=== PATIENT | male | born 1935 | race Caucasian/White ===

== ENCOUNTER 2021-08-20 17:04 | Inpatient (IN) ==
[2021-08-20 17:54] LABS: Basophils % 0.5 %; Hematocrit 36.5 % (37.5-50.1); Hemoglobin 10.9 g/dL (12.9-16.9); Immature Granulocytes % 4.7 % (0-4); Lymphocytes # 0.4 K/mcL (0.6-4.6); Lymphocytes % 4.6 %; Mean Corpuscular HGB Conc 29.9 g/dL (31.6-35.5); Mean Corpuscular Hemoglobin 27.5 pg (28.0-33.3); Mean Corpuscular Volume 91.9 fL (83.0-100.0); Mean Platelet Volume 9.7 fL (9.4-12.4); Monocytes # 0.2 K/mcL (0.0-1.3); Monocytes % 2.6 %; Neutrophils # 6.7 K/mcL (1.6-8.9); Platelet Count 144 K/mcL (140-400); Red Blood Count 3.97 M/mcL (4.19-5.50); Red Cell Distribution Width 13.5 % (11.5-14.5); Segmented Neutrophils % 87.6 %; White Blood Count 7.6 K/mcL (4.3-11.1)
[2021-08-20 18:02] LABS: INR 1.1
[2021-08-20 18:04] LABS: Activated Partial Thrombo Time 45.3 Seconds (26.0-36.0)
[2021-08-20 18:07] LABS: Alanine Aminotransferase 9 Units/L (7-52); Albumin 3.5 g/dL (3.5-5.7); Albumin/Globulin Ratio 1.1 (1.1-2.2); Alkaline Phosphatase 43 Units/L (34-104); Aspartate Amino Transferase 10 Units/L (13-39); BUN/Creatinine Ratio 25 (6-26); Bilirubin,Direct 0.1 mg/dL (0.0-0.2); Bilirubin,Indirect 0.2 mg/dL (0.0-1.0); Bilirubin,Total 0.3 mg/dL (0.3-1.0); Blood Urea Nitrogen 34 mg/dL (8-23); Calcium 8.5 mg/dL (8.6-10.3); Carbon Dioxide 28 mEq/L (23-29); Chloride 102 mEq/L (98-107); Ethanol < 10 mg/dL (Less than 10); Globulin 3.1 g/dL (2.4-3.5); Glucose 205 mg/dL (70-105); Osmolality,Calculated 300 (280-300); Potassium 5.7 mEq/L (3.5-5.1); Sodium 138 mEq/L (136-145); Total Protein 6.6 g/dL (6.4-8.9); Troponin I < 0.03 ng/mL (< 0.04); eGFR For African Americans > 60 (> 60); eGFR For Non-African Americans 50 (> 60)
[2021-08-20 18:18] LABS: Thyroid Stimulating Hormone 0.891 mcIU/mL (0.340-5.600)
[2021-08-20] MEDS ORDERED: Ipratropium/Albuterol Neb 3 ML IH ONE (18:26)
[2021-08-20] MEDS ORDERED: Albuterol 2.5 MG/3 ML NEBULIZER IH ONE (18:42)
[2021-08-20 18:44] LABS: Influenza A PCR Negative (Negative); Influenza B PCR Negative (Negative); Resp. Syncytial Virus PCR Negative (Negative)
[2021-08-20] MEDS ORDERED: Azithromycin 500 MG in 0.9 % Sodium Chloride 250 ML IVPB ONE (18:44)
[2021-08-20] MEDS ORDERED: Furosemide 40 MG/4 ML VIAL IVP ONE (18:44)
[2021-08-20 18:45] LABS: SARS-CoV-2 by PCR (In House) Negative (Negative)
[2021-08-20 19:40] LABS: Bilirubin,Urine Negative (Negative); Blood,Urine Negative (Negative); Clarity,Urine Clear (Clear); Color,Urine Light-Yellow (Yellow); Glucose,Urine (UA) Normal (Normal); Ketones,Urine Negative (Negative); Leukocyte Esterase,Urine Moderate (Negative); Mucus,Urine Few per lpf (None-Few); Nitrite,Urine Negative (Negative); Protein,Urine Trace mg/dL (Neg-Trace); RBC,Urine 0-3 per hpf (0-3); Specific Gravity,Urine 1.018 (1.010-1.025); Urobilinogen,Urine Normal (Normal)
[2021-08-20 19:43] LABS: ABG Base Excess 4 mEq/L (-2 to 3); ABG HCO3 30 mEq/L (21-27); ABG Oxygen Saturation 92 % (95-98); ABG PCO2 55 mmHg (35-45); ABG PH 7.35 pH Units (7.32-7.45); ABG PO2 69 mmHg (85-104); ABG TCO2 32 mEq/L (20-26)
[2021-08-20 19:50] LABS: Amphetamine Screen,Urine Negative ng/mL (Cutoff=1000); Barbiturate Screen,Urine Negative ng/mL (Cutoff=200); Benzodiazepines Screen,Urine Negative ng/mL (Cutoff=200); Cannabinoid Screen,Urine Negative ng/mL (Cutoff = 50); Cocaine Screen,Urine Negative ng/mL (Cutoff= 300); Opiate Screen,Urine Negative ng/mL (Cutoff=300); Phencyclidine Screen,Urine Negative ng/mL (Cutoff=25)
[2021-08-20] MEDS: SODIUM ZIRCONIUM CYCLOSILICATE 5 GM POWD.PACK PO SCH ×2 (20:15→20:18)
[2021-08-20] MEDS ORDERED: cefTRIAXone 1,000 MG in 0.9 % Sodium Chloride Mini Bag 100 ML IVPB ONE (20:59)
[2021-08-20] MEDS ORDERED: Acetaminophen 325 MG TABLET PO PRN (21:56)
[2021-08-20] MEDS ORDERED: Ondansetron 4 MG/2 ML VIAL IVP PRN (21:56)
[2021-08-20] MEDS ORDERED: Naloxone 0.4 MG/ML INJ IVP PRN (21:56)
[2021-08-20] MEDS ORDERED: Isovue-370 500 ML BOTTLE IVP ONE (22:01)
[2021-08-20] MEDS: Ipratropium/Albuterol Neb 3 ML IH SCH (23:57)
[2021-08-20] MEDS: Budesonide/Formoterol 160/4.5 1 PUFF INH IH SCH (23:58)
[2021-08-21] MEDS ORDERED: D5% in Water 1,000 ML IVC PRN (00:08)
[2021-08-21] MEDS ORDERED: Dextrose Gel 15 GM/37.5 ML TUBE PO PRN ×2 (00:08)
[2021-08-21] MEDS ORDERED: *HR* Dextrose 50 % in Water (Syg) 50 ML SYRINGE IVP PRN (00:08)
[2021-08-21] MEDS ORDERED: Furosemide 20 MG/2 ML VIAL IVP ONE ×2 (00:09→07:53)
[2021-08-21] MEDS ORDERED: OLANZapine 5 MG TAB.RAPDIS PO STA (00:14)
[2021-08-21 01:41] LABS: Hematocrit 35.1 % (37.5-50.1); Hemoglobin 10.5 g/dL (12.9-16.9); Mean Corpuscular HGB Conc 29.9 g/dL (31.6-35.5); Mean Corpuscular Hemoglobin 27.2 pg (28.0-33.3); Mean Corpuscular Volume 90.9 fL (83.0-100.0); Mean Platelet Volume 9.5 fL (9.4-12.4); Monocytes # 0.2 K/mcL (0.0-1.3); Platelet Count 142 K/mcL (140-400); Red Blood Count 3.86 M/mcL (4.19-5.50); Red Cell Distribution Width 13.6 % (11.5-14.5); White Blood Count 8.2 K/mcL (4.3-11.1)
[2021-08-21 01:53] LABS: INR 1.1; Prothrombin Time 12.3 Seconds (9.4-12.1)
[2021-08-21 02:09] LABS: BUN/Creatinine Ratio 27 (6-26); Blood Urea Nitrogen 35 mg/dL (8-23); Calcium 8.3 mg/dL (8.6-10.3); Carbon Dioxide 27 mEq/L (23-29); Chloride 102 mEq/L (98-107); Glucose 179 mg/dL (70-105); Osmolality,Calculated 298 (280-300); Phosphorous 3.1 mg/dL (2.7-4.5); Potassium 5.3 mEq/L (3.5-5.1); Sodium 138 mEq/L (136-145); Troponin I < 0.03 ng/mL (< 0.04); eGFR For African Americans > 60 (> 60); eGFR For Non-African Americans 52 (> 60)
[2021-08-21 02:21] LABS: Lymphocytes # 0.5 K/mcL (0.6-4.6); Neutrophils # 7.2 K/mcL (1.6-8.9); Platelet Estimate Normal (Normal)
[2021-08-21] MEDS: Ipratropium/Albuterol Neb 3 ML IH SCH ×5 (04:05→20:19)
[2021-08-21] MEDS ORDERED: Insulin Human Regular 10 UNIT in 0.9 % Sodium Chloride 10 ML IV ONE (07:52)
[2021-08-21] MEDS ORDERED: *HR* Dextrose 50 % in Water (Vial) 50 ML VIAL IVP ONE (07:52)
[2021-08-21] MEDS ORDERED: Calcium Gluconate 1gm/50mL 1 GM/50 ML BAG IVPB ONE (07:52)
[2021-08-21] MEDS: Budesonide/Formoterol 160/4.5 1 PUFF INH IH SCH ×2 (08:26→20:18)
[2021-08-21] MEDS ORDERED: Furosemide 40 MG/4 ML VIAL IVP SCH (09:00)
[2021-08-21] MEDS: cefTRIAXone 1,000 MG in Water for inj. (sterile) 10 ML IVP SCH (09:02)
[2021-08-21] MEDS: Pantoprazole 40 MG VIAL IVP SCH (09:04)
[2021-08-21] MEDS: Aspirin 81 MG TAB.CHEW PO SCH (09:23)
[2021-08-21] MEDS: Chlorhexidine Rinse 15 ML MOUTHWASH MM SCH ×2 (09:23→22:08)
[2021-08-21] MEDS: Saline Nasal Spray 44 ML BOTTLE NS SCH ×2 (09:23→12:25)
[2021-08-21] MEDS: Saliva Stimulant 44.3ml BOTTLE PO SCH ×4 (09:23→22:07)
[2021-08-21] MEDS: SODIUM ZIRCONIUM CYCLOSILICATE 5 GM POWD.PACK PO SCH (09:24)
[2021-08-21] MEDS: Fluticasone Propionate Nasal 50 MCG/SPRAY BOTTLE NS SCH (09:24)
[2021-08-21] MEDS: predniSONE 20 MG TABLET PO SCH (09:24)
[2021-08-21] MEDS: Metoprolol XL (24 HR) Succ 25 MG TAB.ER.24H PO SCH (09:24)
[2021-08-21] MEDS: Lactobacillus 1 EACH CAP.SPRINK PO SCH ×2 (09:24→22:08)
[2021-08-21 11:14] LABS: Acetaminophen < 10 mcg/mL (10-20); Salicylate < 2.5 mg/dL (15.0-30.0)
[2021-08-21 11:33] LABS: Folate 3.6 ng/mL (3.0-16.0)
[2021-08-21] MEDS: Azithromycin 500 MG in 0.9 % Sodium Chloride 250 ML IVPB SCH (11:37)
[2021-08-21] MEDS: Artificial Tears SOLN 15 ML BOTTLE BOTH EYES SCH ×4 (11:54→22:08)
[2021-08-21] MEDS ORDERED: E-Z-PAQUE (BARIUM SULF) SUSP 1 BOTTLE PO ONE (13:48)
[2021-08-21] MEDS ORDERED: E-Z-HD (BARIUM SULF) SUSPENSION PO ONE (13:48)
[2021-08-21] MEDS: *HR* Heparin 5,000 UNIT/ML VIAL SQ SCH ×2 (15:28→22:09)
[2021-08-21] MEDS: OLANZapine 10 MG TAB.RAPDIS PO SCH (22:09)
[2021-08-22 00:03] LABS: Amphetamine Screen,Urine Negative ng/mL (Cutoff=1000); Barbiturate Screen,Urine Negative ng/mL (Cutoff=200); Benzodiazepines Screen,Urine Negative ng/mL (Cutoff=200); Cannabinoid Screen,Urine Negative ng/mL (Cutoff = 50); Cocaine Screen,Urine Negative ng/mL (Cutoff= 300); Opiate Screen,Urine Negative ng/mL (Cutoff=300); Phencyclidine Screen,Urine Negative ng/mL (Cutoff=25)
[2021-08-22] MEDS: Ipratropium/Albuterol Neb 3 ML IH SCH ×7 (00:25→23:00)
[2021-08-22] MEDS: Saline Nasal Spray 44 ML BOTTLE NS SCH ×6 (03:28→21:54)
[2021-08-22] MEDS: *HR* Heparin 5,000 UNIT/ML VIAL SQ SCH ×3 (05:45→22:04)
[2021-08-22] MEDS: Budesonide/Formoterol 160/4.5 1 PUFF INH IH SCH ×2 (07:43→20:17)
[2021-08-22] MEDS: Artificial Tears SOLN 15 ML BOTTLE BOTH EYES SCH ×4 (09:17→21:55)
[2021-08-22] MEDS: Fluticasone Propionate Nasal 50 MCG/SPRAY BOTTLE NS SCH (09:17)
[2021-08-22] MEDS: Saliva Stimulant 44.3ml BOTTLE PO SCH ×4 (09:17→21:54)
[2021-08-22] MEDS: Pantoprazole 40 MG VIAL IVP SCH (09:18)
[2021-08-22] MEDS: Furosemide 20 MG/2 ML VIAL IVP SCH (09:18)
[2021-08-22] MEDS: Azithromycin 500 MG in 0.9 % Sodium Chloride 250 ML IVPB SCH (09:18)
[2021-08-22] MEDS: Metoprolol XL (24 HR) Succ 25 MG TAB.ER.24H PO SCH (09:19)
[2021-08-22] MEDS: Lactobacillus 1 EACH CAP.SPRINK PO SCH ×2 (09:19→21:54)
[2021-08-22] MEDS: cefTRIAXone 1,000 MG in Water for inj. (sterile) 10 ML IVP SCH (09:19)
[2021-08-22] MEDS: Chlorhexidine Rinse 15 ML MOUTHWASH MM SCH ×2 (09:19→21:53)
[2021-08-22] MEDS: SODIUM ZIRCONIUM CYCLOSILICATE 5 GM POWD.PACK PO SCH (09:19)
[2021-08-22] MEDS: Aspirin 81 MG TAB.CHEW PO SCH (09:19)
[2021-08-22] MEDS: predniSONE 20 MG TABLET PO SCH (09:19)
[2021-08-22 10:45] LABS: Hematocrit 38.8 % (37.5-50.1); Hemoglobin 11.8 g/dL (12.9-16.9); Mean Corpuscular HGB Conc 30.4 g/dL (31.6-35.5); Mean Corpuscular Hemoglobin 27.1 pg (28.0-33.3); Mean Corpuscular Volume 89.2 fL (83.0-100.0); Platelet Count 170 K/mcL (140-400); Red Blood Count 4.35 M/mcL (4.19-5.50); White Blood Count 9.9 K/mcL (4.3-11.1)
[2021-08-22 11:44] LABS: Calcium 8.7 mg/dL (8.6-10.3); Potassium 3.9 mEq/L (3.5-5.1)
[2021-08-22 12:19] LABS: Lymphocytes # 1.6 K/mcL (0.6-4.6); Monocytes # 0.4 K/mcL (0.0-1.3); Neutrophils # 7.2 K/mcL (1.6-8.9)
[2021-08-22 12:20] LABS: Platelet Estimate Normal (Normal)
[2021-08-22] MEDS: *HR* LORazepam 0.5 MG TABLET PO SCH ×2 (14:21→21:54)
[2021-08-22] MEDS: OLANZapine 10 MG TAB.RAPDIS PO SCH (21:57)
[2021-08-23] MEDS: Ipratropium/Albuterol Neb 3 ML IH SCH ×3 (04:01→11:16)
[2021-08-23] MEDS: *HR* Heparin 5,000 UNIT/ML VIAL SQ SCH (06:30)
[2021-08-23] MEDS: Budesonide/Formoterol 160/4.5 1 PUFF INH IH SCH (08:02)
[2021-08-23] MEDS ORDERED: CefTRIAXone 1,000 MG VIAL ONE (08:15)
[2021-08-23] MEDS ORDERED: 0.9 % Sodium Chloride 250 ML ONE (08:15)
[2021-08-23] MEDS: cefTRIAXone 1,000 MG in Water for inj. (sterile) 10 ML IVP SCH (08:19)
[2021-08-23] MEDS: Azithromycin 500 MG in 0.9 % Sodium Chloride 250 ML IVPB SCH (08:19)
[2021-08-23] MEDS: predniSONE 20 MG TABLET PO SCH (08:20)
[2021-08-23] MEDS: Chlorhexidine Rinse 15 ML MOUTHWASH MM SCH (08:20)
[2021-08-23] MEDS: *HR* LORazepam 0.5 MG TABLET PO SCH (08:20)
[2021-08-23] MEDS: Furosemide 20 MG/2 ML VIAL IVP SCH (08:20)
[2021-08-23] MEDS: Aspirin 81 MG TAB.CHEW PO SCH (08:20)
[2021-08-23] MEDS: Lactobacillus 1 EACH CAP.SPRINK PO SCH (08:20)
[2021-08-23] MEDS: Metoprolol XL (24 HR) Succ 25 MG TAB.ER.24H PO SCH (08:20)
[2021-08-23] MEDS: Artificial Tears SOLN 15 ML BOTTLE BOTH EYES SCH ×2 (08:21→13:03)
[2021-08-23] MEDS: Saliva Stimulant 44.3ml BOTTLE PO SCH ×2 (08:21→13:03)
[2021-08-23] MEDS: Fluticasone Propionate Nasal 50 MCG/SPRAY BOTTLE NS SCH (08:21)
[2021-08-23] MEDS: Saline Nasal Spray 44 ML BOTTLE NS SCH ×2 (08:22→13:03)
[2021-08-23 11:39] VITALS: BP 155/52; PULSE 74; TEMP 97.5; O2SAT 90
[2021-08-23 14:49] LABS: Adenovirus Not Detected (Not Detect); Bordetella Pertussis Not Detected (Not Detect); Chlamydophila pneumoniae Not Detected (Not Detect); Coronavirus 229E Not Detected (Not Detect); Coronavirus HKU1 Not Detected (Not Detect); Coronavirus NL63 Not Detected (Not Detect); Coronavirus OC43 Not Detected (Not Detect); Human Metapneumovirus Not Detected (Not Detect); Human Rhinovirus/Enterovirus Not Detected (Not Detect); Influenza A Subtype 2009 H1 Not Detected (Not Detect); Influenza B Not Detected (Not Detect); Mycoplasma pneumoniae Not Detected (Not Detect); Parainfluenza Virus 1 Not Detected (Not Detect); Parainfluenza Virus 2 Not Detected (Not Detect); Parainfluenza Virus 3 Not Detected (Not Detect); Parainfluenza Virus 4 Not Detected (Not Detect); Respiratory Syncytial Virus Not Detected (Not Detect); SARS-CoV-2 Not Detected (Not Detect)
== END 2021-08-23 15:04 | DRG 56 ==
LOC: 3ANU 17:04 → EMEROOARM 17:04 → SUATTDRO 21:30 → 3ANU 22:02
PROVIDERS: ADMIT Internal Medicine; ATTEND Internal Medicine

== ENCOUNTER 2021-08-31 12:48 | Inpatient (IN) ==
[2021-08-31 13:55] LABS: Mean Corpuscular HGB Conc 29.7 g/dL (31.6-35.5); Mean Corpuscular Hemoglobin 27.6 pg (28.0-33.3); Mean Corpuscular Volume 92.7 fL (83.0-100.0); Mean Platelet Volume 9.9 fL (9.4-12.4); Monocytes # 0.3 K/mcL (0.0-1.3); Platelet Count 106 K/mcL (140-400); Red Blood Count 3.99 M/mcL (4.19-5.50); Red Cell Distribution Width 14.1 % (11.5-14.5); White Blood Count 7.2 K/mcL (4.3-11.1)
[2021-08-31 14:16] LABS: BUN/Creatinine Ratio 23 (6-26); Blood Urea Nitrogen 27 mg/dL (8-23); Calcium 8.4 mg/dL (8.6-10.3); Carbon Dioxide 31 mEq/L (23-29); Chloride 105 mEq/L (98-107); Glucose 236 mg/dL (70-105); Osmolality,Calculated 295 (280-300); Potassium 5.1 mEq/L (3.5-5.1); Sodium 136 mEq/L (136-145); eGFR For African Americans > 60 (> 60); eGFR For Non-African Americans 59 (> 60)
[2021-08-31 14:24] LABS: Troponin I 0.06 ng/mL (< 0.04)
[2021-08-31 14:27] LABS: Lymphocytes # 0.5 K/mcL (0.6-4.6); Neutrophils # 6.4 K/mcL (1.6-8.9); Platelet Estimate Slight Decrease (Normal)
[2021-08-31] MEDS ORDERED: Ondansetron 4 MG/2 ML VIAL IVP PRN (16:32)
[2021-08-31] MEDS ORDERED: Naloxone 0.4 MG/ML INJ IVP PRN (16:32)
[2021-08-31] MEDS ORDERED: Acetaminophen 325 MG TABLET PO PRN (17:45)
[2021-08-31] MEDS ORDERED: Ipratropium/Albuterol Neb 3 ML IH PRN (17:45)
[2021-08-31] MEDS ORDERED: Artificial Tears SOLN 15 ML BOTTLE BOTH EYES PRN (17:45)
[2021-08-31 17:50] LABS: Thyroid Stimulating Hormone 0.749 mcIU/mL (0.340-5.600)
[2021-08-31 18:04] LABS: Albumin/Globulin Ratio 1.3 (1.1-2.2); Bilirubin,Direct 0.1 mg/dL (0.0-0.2); Bilirubin,Indirect 0.3 mg/dL (0.0-1.0); Bilirubin,Total 0.4 mg/dL (0.3-1.0); Globulin 2.4 g/dL (2.4-3.5); Total Protein 5.4 g/dL (6.4-8.9)
[2021-08-31 18:07] LABS: Adenovirus Not Detected (Not Detect); Coronavirus 229E Not Detected (Not Detect); Coronavirus HKU1 Not Detected (Not Detect); Coronavirus NL63 Not Detected (Not Detect); Coronavirus OC43 Not Detected (Not Detect)
[2021-08-31 18:08] LABS: Bordetella Pertussis Not Detected (Not Detect); Chlamydophila pneumoniae Not Detected (Not Detect); Human Metapneumovirus Not Detected (Not Detect); Human Rhinovirus/Enterovirus Not Detected (Not Detect); Influenza A Subtype 2009 H1 Not Detected (Not Detect); Influenza B Not Detected (Not Detect); Mycoplasma pneumoniae Not Detected (Not Detect); Parainfluenza Virus 1 Not Detected (Not Detect); Parainfluenza Virus 2 Not Detected (Not Detect); Parainfluenza Virus 3 Not Detected (Not Detect); Parainfluenza Virus 4 Not Detected (Not Detect); Respiratory Syncytial Virus Not Detected (Not Detect); SARS-CoV-2 DETECTED (Not Detect)
[2021-08-31] MEDS: Lactobacillus 1 EACH CAP.SPRINK PO SCH (21:50)
[2021-08-31] MEDS: *HR* LORazepam 1 MG TABLET PO SCH (21:50)
[2021-08-31] MEDS: OLANZapine 10 MG TAB.RAPDIS PO SCH (23:32)
[2021-09-01 02:20] LABS: Alanine Aminotransferase 8 Units/L (7-52); Albumin 3.1 g/dL (3.5-5.7); Albumin/Globulin Ratio 1.4 (1.1-2.2); Alkaline Phosphatase 42 Units/L (34-104); Aspartate Amino Transferase 9 Units/L (13-39); BUN/Creatinine Ratio 27 (6-26); Bilirubin,Total 0.5 mg/dL (0.3-1.0); Blood Urea Nitrogen 32 mg/dL (8-23); Calcium 8.4 mg/dL (8.6-10.3); Carbon Dioxide 34 mEq/L (23-29); Chloride 104 mEq/L (98-107); Globulin 2.2 g/dL (2.4-3.5); Glucose 136 mg/dL (70-105); Osmolality,Calculated 293 (280-300); Potassium 5.3 mEq/L (3.5-5.1); Sodium 137 mEq/L (136-145); Total Protein 5.3 g/dL (6.4-8.9); eGFR For African Americans > 60 (> 60); eGFR For Non-African Americans 59 (> 60)
[2021-09-01 02:34] LABS: Hematocrit 34.9 % (37.5-50.1); Hemoglobin 10.6 g/dL (12.9-16.9); Mean Corpuscular HGB Conc 30.4 g/dL (31.6-35.5); Mean Corpuscular Hemoglobin 28.1 pg (28.0-33.3); Mean Corpuscular Volume 92.6 fL (83.0-100.0); Mean Platelet Volume 9.8 fL (9.4-12.4); Platelet Count 135 K/mcL (140-400); Red Blood Count 3.77 M/mcL (4.19-5.50); White Blood Count 6.2 K/mcL (4.3-11.1)
[2021-09-01] MEDS: *HR* Enoxaparin 40 MG/0.4 ML SYRINGE SQ SCH (05:38)
[2021-09-01 06:27] LABS: Bilirubin,Urine Negative (Negative); Blood,Urine Large (Negative); Clarity,Urine Ex.Turbid (Clear); Color,Urine Dark-Brown (Yellow); Glucose,Urine (UA) Normal (Normal); Ketones,Urine Negative (Negative); Leukocyte Esterase,Urine Small (Negative); Nitrite,Urine Negative (Negative); PH,Urine 5.5 pH Units (5.0-8.0); Protein,Urine 70 mg/dL (Neg-Trace); RBC,Urine TNTC per hpf (0-3); Specific Gravity,Urine 1.018 (1.010-1.025); Urobilinogen,Urine Normal (Normal); WBC,Urine TNTC per hpf (0-3)
[2021-09-01] MEDS: Dexamethasone Sodium Phos/PF 10 MG/ML VIAL IVP SCH (08:01)
[2021-09-01] MEDS: Fluticasone Propionate Nasal 50 MCG/SPRAY BOTTLE NS SCH (08:02)
[2021-09-01] MEDS: Cholecalciferol (D-3) 1,000 UNIT (25MCG) TABLET PO SCH (08:02)
[2021-09-01] MEDS: *HR* LORazepam 1 MG TABLET PO SCH ×3 (08:02→21:51)
[2021-09-01] MEDS: polyethylene glycoL 3350 17 GM POWD.PACK PO SCH (08:02)
[2021-09-01] MEDS: Lactobacillus 1 EACH CAP.SPRINK PO SCH ×2 (08:02→21:51)
[2021-09-01] MEDS: Furosemide 20 MG TABLET PO SCH (08:02)
[2021-09-01] MEDS: Metoprolol XL (24 HR) Succ 50 MG TAB.ER.24H PO SCH (08:02)
[2021-09-01] MEDS: cefTRIAXone 2,000 MG in 0.9 % Sodium Chloride Mini Bag 100 ML IVPB SCH (09:37)
[2021-09-01] MEDS: OLANZapine 10 MG TAB.RAPDIS PO SCH (21:51)
[2021-09-02] MEDS: *HR* Enoxaparin 40 MG/0.4 ML SYRINGE SQ SCH (05:43)
[2021-09-02] MEDS: Metoprolol XL (24 HR) Succ 50 MG TAB.ER.24H PO SCH (07:54)
[2021-09-02] MEDS: *HR* LORazepam 1 MG TABLET PO SCH ×3 (07:54→20:21)
[2021-09-02] MEDS: Cholecalciferol (D-3) 1,000 UNIT (25MCG) TABLET PO SCH (07:54)
[2021-09-02] MEDS: Lactobacillus 1 EACH CAP.SPRINK PO SCH ×2 (07:54→20:21)
[2021-09-02] MEDS: Furosemide 20 MG TABLET PO SCH (07:55)
[2021-09-02] MEDS: cefTRIAXone 2,000 MG in 0.9 % Sodium Chloride Mini Bag 100 ML IVPB SCH (07:55)
[2021-09-02] MEDS: Dexamethasone Sodium Phos/PF 10 MG/ML VIAL IVP SCH (07:55)
[2021-09-02] MEDS: Fluticasone Propionate Nasal 50 MCG/SPRAY BOTTLE NS SCH (07:56)
[2021-09-02] MEDS: polyethylene glycoL 3350 17 GM POWD.PACK PO SCH (07:56)
[2021-09-02 09:22] LABS: Hematocrit 38.6 % (37.5-50.1); Hemoglobin 11.2 g/dL (12.9-16.9); Mean Corpuscular Hemoglobin 27.1 pg (28.0-33.3); Mean Corpuscular Volume 93.2 fL (83.0-100.0); Mean Platelet Volume 9.7 fL (9.4-12.4); Platelet Count 130 K/mcL (140-400); Red Blood Count 4.14 M/mcL (4.19-5.50); White Blood Count 7.6 K/mcL (4.3-11.1)
[2021-09-02 09:41] LABS: Alanine Aminotransferase 8 Units/L (7-52); Albumin 3.2 g/dL (3.5-5.7); Albumin/Globulin Ratio 1.2 (1.1-2.2); Alkaline Phosphatase 39 Units/L (34-104); Aspartate Amino Transferase 9 Units/L (13-39); BUN/Creatinine Ratio 27 (6-26); Bilirubin,Total 0.5 mg/dL (0.3-1.0); Blood Urea Nitrogen 31 mg/dL (8-23); Calcium 8.4 mg/dL (8.6-10.3); Carbon Dioxide 36 mEq/L (23-29); Chloride 103 mEq/L (98-107); Globulin 2.7 g/dL (2.4-3.5); Glucose 101 mg/dL (70-105); Osmolality,Calculated 295 (280-300); Potassium 4.8 mEq/L (3.5-5.1); Sodium 139 mEq/L (136-145); Total Protein 5.9 g/dL (6.4-8.9); eGFR For African Americans > 60 (> 60); eGFR For Non-African Americans > 60 (> 60)
[2021-09-02] MEDS: Ipratropium/Albuterol Neb 3 ML IH SCH ×5 (10:30→23:50)
[2021-09-02] MEDS: OLANZapine 10 MG TAB.RAPDIS PO SCH (20:21)
[2021-09-03 01:07] LABS: Hemoglobin 10.7 g/dL (12.9-16.9); Red Cell Distribution Width 13.9 % (11.5-14.5)
[2021-09-03 01:09] LABS: Hematocrit 36.9 % (37.5-50.1); Mean Corpuscular Hemoglobin 27.8 pg (28.0-33.3); Mean Corpuscular Volume 95.8 fL (83.0-100.0); Mean Platelet Volume 9.8 fL (9.4-12.4); Platelet Count 108 K/mcL (140-400); Red Blood Count 3.85 M/mcL (4.19-5.50); White Blood Count 5.5 K/mcL (4.3-11.1)
[2021-09-03 01:31] LABS: Alanine Aminotransferase 6 Units/L (7-52); Albumin/Globulin Ratio 1.2 (1.1-2.2); Alkaline Phosphatase 35 Units/L (34-104); Aspartate Amino Transferase 14 Units/L (13-39); BUN/Creatinine Ratio 28 (6-26); Bilirubin,Total 0.3 mg/dL (0.3-1.0); Blood Urea Nitrogen 34 mg/dL (8-23); Calcium 8.1 mg/dL (8.6-10.3); Carbon Dioxide 31 mEq/L (23-29); Chloride 103 mEq/L (98-107); Globulin 2.5 g/dL (2.4-3.5); Glucose 127 mg/dL (70-105); Osmolality,Calculated 299 (280-300); Sodium 140 mEq/L (136-145); Total Protein 5.5 g/dL (6.4-8.9); eGFR For African Americans > 60 (> 60); eGFR For Non-African Americans 56 (> 60)
[2021-09-03] MEDS: Ipratropium/Albuterol Neb 3 ML IH SCH (04:13)
[2021-09-03] MEDS: *HR* Enoxaparin 40 MG/0.4 ML SYRINGE SQ SCH (06:46)
[2021-09-03] MEDS ORDERED: Ipratropium 1 PUFF INHALER IH ONE (07:52)
[2021-09-03] MEDS: Ipratropium 1 PUFF INHALER IH SCH ×5 (07:57→23:19)
[2021-09-03] MEDS: Metoprolol XL (24 HR) Succ 50 MG TAB.ER.24H PO SCH (10:35)
[2021-09-03] MEDS: *HR* LORazepam 1 MG TABLET PO SCH ×3 (10:35→20:31)
[2021-09-03] MEDS: Furosemide 20 MG TABLET PO SCH (10:35)
[2021-09-03] MEDS: Cholecalciferol (D-3) 1,000 UNIT (25MCG) TABLET PO SCH (10:35)
[2021-09-03] MEDS: Lactobacillus 1 EACH CAP.SPRINK PO SCH ×2 (10:35→20:31)
[2021-09-03] MEDS: Fluticasone Propionate Nasal 50 MCG/SPRAY BOTTLE NS SCH (10:36)
[2021-09-03] MEDS: polyethylene glycoL 3350 17 GM POWD.PACK PO SCH (10:36)
[2021-09-03] MEDS: cefTRIAXone 2,000 MG in 0.9 % Sodium Chloride Mini Bag 100 ML IVPB SCH (10:43)
[2021-09-03] MEDS: Dexamethasone Sodium Phos/PF 10 MG/ML VIAL IVP SCH (10:44)
[2021-09-03] MEDS: OLANZapine 10 MG TAB.RAPDIS PO SCH (20:31)
[2021-09-04] MEDS ORDERED: QUEtiapine Fumarate 25 MG TABLET PO ONE (01:15)
[2021-09-04 01:47] LABS: Platelet Count 108 K/mcL (140-400); Red Cell Distribution Width 13.7 % (11.5-14.5); White Blood Count 5.7 K/mcL (4.3-11.1)
[2021-09-04 01:49] LABS: Hematocrit 36.8 % (37.5-50.1); Mean Corpuscular HGB Conc 29.9 g/dL (31.6-35.5); Mean Corpuscular Hemoglobin 27.8 pg (28.0-33.3); Mean Corpuscular Volume 92.9 fL (83.0-100.0); Mean Platelet Volume 9.5 fL (9.4-12.4); Red Blood Count 3.96 M/mcL (4.19-5.50)
[2021-09-04 02:10] LABS: Alanine Aminotransferase 6 Units/L (7-52); Albumin 3.2 g/dL (3.5-5.7); Albumin/Globulin Ratio 1.2 (1.1-2.2); Alkaline Phosphatase 41 Units/L (34-104); Aspartate Amino Transferase 11 Units/L (13-39); BUN/Creatinine Ratio 30 (6-26); Bilirubin,Total 0.4 mg/dL (0.3-1.0); Blood Urea Nitrogen 32 mg/dL (8-23); Calcium 8.5 mg/dL (8.6-10.3); Carbon Dioxide 34 mEq/L (23-29); Chloride 101 mEq/L (98-107); Globulin 2.7 g/dL (2.4-3.5); Glucose 111 mg/dL (70-105); Osmolality,Calculated 294 (280-300); Potassium 4.9 mEq/L (3.5-5.1); Sodium 138 mEq/L (136-145); Total Protein 5.9 g/dL (6.4-8.9); eGFR For African Americans > 60 (> 60); eGFR For Non-African Americans > 60 (> 60)
[2021-09-04] MEDS: Ipratropium 1 PUFF INHALER IH SCH ×6 (03:51→23:38)
[2021-09-04] MEDS: *HR* Enoxaparin 40 MG/0.4 ML SYRINGE SQ SCH (05:46)
[2021-09-04] MEDS: Metoprolol XL (24 HR) Succ 50 MG TAB.ER.24H PO SCH (08:53)
[2021-09-04] MEDS: Lactobacillus 1 EACH CAP.SPRINK PO SCH ×2 (08:53→21:04)
[2021-09-04] MEDS: *HR* LORazepam 1 MG TABLET PO SCH ×3 (08:54→21:04)
[2021-09-04] MEDS: Furosemide 20 MG TABLET PO SCH (08:54)
[2021-09-04] MEDS: Cholecalciferol (D-3) 1,000 UNIT (25MCG) TABLET PO SCH (08:54)
[2021-09-04] MEDS: polyethylene glycoL 3350 17 GM POWD.PACK PO SCH (13:18)
[2021-09-04] MEDS: Dexamethasone Sodium Phos/PF 10 MG/ML VIAL IVP SCH (13:32)
[2021-09-04] MEDS: cefTRIAXone 2,000 MG in 0.9 % Sodium Chloride Mini Bag 100 ML IVPB SCH (13:33)
[2021-09-04] MEDS: Fluticasone Propionate Nasal 50 MCG/SPRAY BOTTLE NS SCH (13:34)
[2021-09-04] MEDS: OLANZapine 10 MG TAB.RAPDIS PO SCH (21:04)
[2021-09-05] MEDS: Ipratropium 1 PUFF INHALER IH SCH ×6 (03:54→23:43)
[2021-09-05] MEDS: *HR* Enoxaparin 40 MG/0.4 ML SYRINGE SQ SCH (05:27)
[2021-09-05 06:39] LABS: Hematocrit 34.3 % (37.5-50.1); Hemoglobin 10.1 g/dL (12.9-16.9); Immature Platelets 3.3 % (1.1-6.1); Mean Corpuscular HGB Conc 29.4 g/dL (31.6-35.5); Mean Corpuscular Hemoglobin 27.2 pg (28.0-33.3); Mean Corpuscular Volume 92.2 fL (83.0-100.0); Red Blood Count 3.72 M/mcL (4.19-5.50); Red Cell Distribution Width 13.6 % (11.5-14.5)
[2021-09-05] MEDS: Fluticasone Propionate Nasal 50 MCG/SPRAY BOTTLE NS SCH (07:00)
[2021-09-05 07:01] LABS: Alanine Aminotransferase 9 Units/L (7-52); Albumin/Globulin Ratio 1.2 (1.1-2.2); Alkaline Phosphatase 40 Units/L (34-104); Aspartate Amino Transferase 11 Units/L (13-39); BUN/Creatinine Ratio 28 (6-26); Bilirubin,Total 0.4 mg/dL (0.3-1.0); Blood Urea Nitrogen 33 mg/dL (8-23); Calcium 8.5 mg/dL (8.6-10.3); Carbon Dioxide 41 mEq/L (23-29); Chloride 98 mEq/L (98-107); Globulin 2.6 g/dL (2.4-3.5); Glucose 123 mg/dL (70-105); Osmolality,Calculated 301 (280-300); Potassium 4.6 mEq/L (3.5-5.1); Sodium 141 mEq/L (136-145); Total Protein 5.6 g/dL (6.4-8.9); eGFR For African Americans > 60 (> 60); eGFR For Non-African Americans 59 (> 60)
[2021-09-05] MEDS: Furosemide 20 MG TABLET PO SCH (10:10)
[2021-09-05] MEDS: Cholecalciferol (D-3) 1,000 UNIT (25MCG) TABLET PO SCH (10:10)
[2021-09-05] MEDS: Metoprolol XL (24 HR) Succ 50 MG TAB.ER.24H PO SCH (10:10)
[2021-09-05] MEDS: Dexamethasone Sodium Phos/PF 10 MG/ML VIAL IVP SCH (10:10)
[2021-09-05] MEDS: *HR* LORazepam 1 MG TABLET PO SCH ×3 (10:10→20:33)
[2021-09-05] MEDS: Lactobacillus 1 EACH CAP.SPRINK PO SCH ×2 (10:10→20:33)
[2021-09-05] MEDS: cefTRIAXone 2,000 MG in 0.9 % Sodium Chloride Mini Bag 100 ML IVPB SCH (10:11)
[2021-09-05] MEDS: polyethylene glycoL 3350 17 GM POWD.PACK PO SCH (10:12)
[2021-09-05] MEDS: Haloperidol Lactate 5 MG/ML VIAL IVP PRN ×2 (13:04→21:32)
[2021-09-05] MEDS ORDERED: Ziprasidone 10 MG, Closed System Device IM Kit 1 EACH in Water for inj. (sterile) 0.5 ML IM ONE (13:26)
[2021-09-05] MEDS ORDERED: Water for inj. (sterile) 10 ML ONE (13:41)
[2021-09-05] MEDS: OLANZapine 10 MG TAB.RAPDIS PO SCH (20:33)
[2021-09-06] MEDS ORDERED: *HR* LORazepam 2 MG/ML VIAL IVP ONE (00:45)
[2021-09-06] MEDS: Ipratropium 1 PUFF INHALER IH SCH ×5 (03:45→20:39)
[2021-09-06] MEDS: *HR* Enoxaparin 40 MG/0.4 ML SYRINGE SQ SCH (04:49)
[2021-09-06 06:00] LABS: Hematocrit 35.1 % (37.5-50.1); Hemoglobin 10.4 g/dL (12.9-16.9); Immature Platelets 3.8 % (1.1-6.1); Mean Corpuscular HGB Conc 29.6 g/dL (31.6-35.5); Mean Corpuscular Hemoglobin 27.3 pg (28.0-33.3); Mean Corpuscular Volume 92.1 fL (83.0-100.0); Mean Platelet Volume 10.1 fL (9.4-12.4); Red Blood Count 3.81 M/mcL (4.19-5.50); Red Cell Distribution Width 13.2 % (11.5-14.5)
[2021-09-06 06:15] LABS: Alanine Aminotransferase 9 Units/L (7-52); Albumin 3.1 g/dL (3.5-5.7); Albumin/Globulin Ratio 1.2 (1.1-2.2); Alkaline Phosphatase 41 Units/L (34-104); Aspartate Amino Transferase 12 Units/L (13-39); BUN/Creatinine Ratio 33 (6-26); Bilirubin,Total 0.4 mg/dL (0.3-1.0); Blood Urea Nitrogen 35 mg/dL (8-23); Calcium 8.9 mg/dL (8.6-10.3); Carbon Dioxide 41 mEq/L (23-29); Chloride 100 mEq/L (98-107); Globulin 2.6 g/dL (2.4-3.5); Glucose 129 mg/dL (70-105); Osmolality,Calculated 306 (280-300); Potassium 4.6 mEq/L (3.5-5.1); Sodium 143 mEq/L (136-145); Total Protein 5.7 g/dL (6.4-8.9); eGFR For African Americans > 60 (> 60); eGFR For Non-African Americans > 60 (> 60)
[2021-09-06] MEDS: Cholecalciferol (D-3) 1,000 UNIT (25MCG) TABLET PO SCH (10:06)
[2021-09-06] MEDS: Dexamethasone Sodium Phos/PF 10 MG/ML VIAL IVP SCH (10:06)
[2021-09-06] MEDS: polyethylene glycoL 3350 17 GM POWD.PACK PO SCH (10:06)
[2021-09-06] MEDS: Lactobacillus 1 EACH CAP.SPRINK PO SCH ×2 (10:06→23:38)
[2021-09-06] MEDS: Metoprolol XL (24 HR) Succ 50 MG TAB.ER.24H PO SCH (10:07)
[2021-09-06] MEDS: Furosemide 20 MG TABLET PO SCH (10:07)
[2021-09-06] MEDS: *HR* LORazepam 1 MG TABLET PO SCH ×3 (10:07→23:38)
[2021-09-06] MEDS: Fluticasone Propionate Nasal 50 MCG/SPRAY BOTTLE NS SCH (10:07)
[2021-09-06 10:25] LABS: D-Dimer 402 ng/mLFEU (0-500)
[2021-09-06 10:31] LABS: Fibrinogen 735 mg/dL (169-393)
[2021-09-06 10:32] LABS: C-Reactive Protein 142 mg/L (Less than 10); Lactate Dehydrogenase 253 Units/L (140-271)
[2021-09-06 10:50] LABS: Ferritin 509 ng/mL (20-250)
[2021-09-06 11:41] LABS: ABG Base Excess 13 mEq/L (-2 to 3); ABG HCO3 42 mEq/L (21-27); ABG Oxygen Saturation 93 % (95-98); ABG PCO2 77 mmHg (35-45); ABG PH 7.35 pH Units (7.32-7.45); ABG PO2 76 mmHg (85-104); ABG TCO2 45 mEq/L (20-26)
[2021-09-06] MEDS: Haloperidol Lactate 5 MG/ML VIAL IVP PRN (18:52)
[2021-09-06] MEDS: OLANZapine 10 MG TAB.RAPDIS PO SCH (23:38)
[2021-09-07] MEDS: Ipratropium 1 PUFF INHALER IH SCH ×7 (00:03→23:16)
[2021-09-07 02:59] LABS: White Blood Count 5.4 K/mcL (4.3-11.1)
[2021-09-07 03:00] LABS: Hematocrit 37.1 % (37.5-50.1); Hemoglobin 10.3 g/dL (12.9-16.9); Immature Platelets 2.5 % (1.1-6.1); Mean Corpuscular HGB Conc 27.8 g/dL (31.6-35.5); Mean Corpuscular Hemoglobin 27.2 pg (28.0-33.3); Mean Corpuscular Volume 97.9 fL (83.0-100.0); Mean Platelet Volume 10.3 fL (9.4-12.4); Red Blood Count 3.79 M/mcL (4.19-5.50); Red Cell Distribution Width 13.3 % (11.5-14.5)
[2021-09-07] MEDS: Haloperidol Lactate 5 MG/ML VIAL IVP PRN ×3 (04:30→22:42)
[2021-09-07] MEDS ORDERED: *HR* LORazepam 2 MG/ML VIAL IVP ONE (05:00)
[2021-09-07] MEDS: *HR* Enoxaparin 40 MG/0.4 ML SYRINGE SQ SCH (05:18)
[2021-09-07 05:30] LABS: ABG Base Excess 14 mEq/L (-2 to 3); ABG HCO3 42 mEq/L (21-27); ABG Oxygen Saturation 78 % (95-98); ABG PCO2 68 mmHg (35-45); ABG PO2 45 mmHg (85-104); ABG TCO2 44 mEq/L (20-26); Blood Gas Modality HFOT 60L
[2021-09-07 08:22] LABS: Alanine Aminotransferase 11 Units/L (7-52); Albumin 2.9 g/dL (3.5-5.7); Alkaline Phosphatase 40 Units/L (34-104); Aspartate Amino Transferase 11 Units/L (13-39); BUN/Creatinine Ratio 34 (6-26); Bilirubin,Total 0.6 mg/dL (0.3-1.0); Blood Urea Nitrogen 34 mg/dL (8-23); Calcium 8.3 mg/dL (8.6-10.3); Carbon Dioxide 41 mEq/L (23-29); Chloride 99 mEq/L (98-107); Globulin 2.8 g/dL (2.4-3.5); Glucose 130 mg/dL (70-105); Osmolality,Calculated 303 (280-300); Potassium 4.3 mEq/L (3.5-5.1); Sodium 142 mEq/L (136-145); Total Protein 5.7 g/dL (6.4-8.9); eGFR For African Americans > 60 (> 60); eGFR For Non-African Americans > 60 (> 60)
[2021-09-07] MEDS: polyethylene glycoL 3350 17 GM POWD.PACK PO SCH (09:42)
[2021-09-07] MEDS: Metoprolol XL (24 HR) Succ 50 MG TAB.ER.24H PO SCH (09:42)
[2021-09-07] MEDS: Lactobacillus 1 EACH CAP.SPRINK PO SCH ×2 (09:42→22:42)
[2021-09-07] MEDS: Fluticasone Propionate Nasal 50 MCG/SPRAY BOTTLE NS SCH (09:42)
[2021-09-07] MEDS: Cholecalciferol (D-3) 1,000 UNIT (25MCG) TABLET PO SCH (09:43)
[2021-09-07] MEDS: Dexamethasone Sodium Phos/PF 10 MG/ML VIAL IVP SCH (09:46)
[2021-09-07] MEDS: *HR* LORazepam 1 MG TABLET PO SCH ×2 (14:17→15:28)
[2021-09-07] MEDS ORDERED: *HR* LORazepam 2 MG/ML VIAL IVP PRN (16:00)
[2021-09-07] MEDS: Morphine Sulfate Oral CONC 10 MG/0.5 ML ORAL.SYG SL SCH ×3 (18:35→23:29)
[2021-09-07] MEDS: OLANZapine 10 MG TAB.RAPDIS PO SCH (22:42)
[2021-09-08] MEDS ORDERED: *HR* LORazepam 2 MG/ML VIAL IVP ONE (04:30)
[2021-09-08] MEDS: Ipratropium 1 PUFF INHALER IH SCH ×5 (04:32→20:05)
[2021-09-08] MEDS ORDERED: Morphine Sulfate 2 MG/ML SYRINGE IVP ONE (04:33)
[2021-09-08] MEDS: *HR* Enoxaparin 40 MG/0.4 ML SYRINGE SQ SCH (04:48)
[2021-09-08] MEDS: Morphine Sulfate Oral CONC 10 MG/0.5 ML ORAL.SYG SL SCH (04:48)
[2021-09-08 05:19] LABS: Hemoglobin 9.9 g/dL (12.9-16.9); Red Cell Distribution Width 13.2 % (11.5-14.5)
[2021-09-08 05:21] LABS: Basophils % 0.1 %; Hematocrit 33.2 % (37.5-50.1); Immature Granulocytes % 0.4 % (0-4); Immature Platelets 3.4 % (1.1-6.1); Lymphocytes # 0.2 K/mcL (0.6-4.6); Lymphocytes % 2.6 %; Mean Corpuscular HGB Conc 29.8 g/dL (31.6-35.5); Mean Corpuscular Hemoglobin 27.6 pg (28.0-33.3); Mean Corpuscular Volume 92.5 fL (83.0-100.0); Mean Platelet Volume 9.9 fL (9.4-12.4); Monocytes # 0.3 K/mcL (0.0-1.3); Monocytes % 4.3 %; Neutrophils # 6.3 K/mcL (1.6-8.9); Platelet Count 109 K/mcL (140-400); Red Blood Count 3.59 M/mcL (4.19-5.50); Segmented Neutrophils % 92.6 %; White Blood Count 6.8 K/mcL (4.3-11.1)
[2021-09-08 05:51] LABS: Alanine Aminotransferase 12 Units/L (7-52); Albumin 2.8 g/dL (3.5-5.7); Alkaline Phosphatase 39 Units/L (34-104); Aspartate Amino Transferase 17 Units/L (13-39); BUN/Creatinine Ratio 33 (6-26); Bilirubin,Total 0.7 mg/dL (0.3-1.0); Blood Urea Nitrogen 33 mg/dL (8-23); Calcium 8.4 mg/dL (8.6-10.3); Carbon Dioxide 42 mEq/L (23-29); Chloride 99 mEq/L (98-107); Globulin 2.7 g/dL (2.4-3.5); Glucose 147 mg/dL (70-105); Osmolality,Calculated 300 (280-300); Potassium 5.2 mEq/L (3.5-5.1); Sodium 140 mEq/L (136-145); Total Protein 5.5 g/dL (6.4-8.9); eGFR For African Americans > 60 (> 60); eGFR For Non-African Americans > 60 (> 60)
[2021-09-08] MEDS ORDERED: 0.9 % Sodium Chloride 1,000 ML IVC SCH (08:15)
[2021-09-08 08:58] LABS: ABG Base Excess 19 mEq/L (-2 to 3); ABG HCO3 47 mEq/L (21-27); ABG Oxygen Saturation 89 % (95-98); ABG PCO2 77 mmHg (35-45); ABG PO2 60 mmHg (85-104); ABG TCO2 50 mEq/L (20-26)
[2021-09-08] MEDS: Haloperidol Lactate 5 MG/ML VIAL IVP PRN (10:00)
[2021-09-08] MEDS: Dexamethasone Sodium Phos/PF 10 MG/ML VIAL IVP SCH (10:04)
[2021-09-08] MEDS: Metoprolol XL (24 HR) Succ 50 MG TAB.ER.24H PO SCH (10:05)
[2021-09-08] MEDS: Lactobacillus 1 EACH CAP.SPRINK PO SCH (10:05)
[2021-09-08] MEDS: Cholecalciferol (D-3) 1,000 UNIT (25MCG) TABLET PO SCH (10:05)
[2021-09-08] MEDS: polyethylene glycoL 3350 17 GM POWD.PACK PO SCH (10:05)
[2021-09-08] MEDS: Fluticasone Propionate Nasal 50 MCG/SPRAY BOTTLE NS SCH (10:05)
[2021-09-08 10:16] VITALS: BP 118/68; PULSE 84; TEMP 97.4
[2021-09-08] MEDS ORDERED: *HR* LORazepam 2 MG/ML VIAL IVP PRN (13:13)
[2021-09-08] MEDS: Dexmedetomidine HCl 400 MCG/100 ML MLS IVC SCH ×2 (13:21→18:17)
[2021-09-08] MEDS ORDERED: Haloperidol Lactate 5 MG/ML VIAL IVP PRN (14:37)
[2021-09-08] MEDS: Morphine Sulfate 2 MG/ML SYRINGE IVP PRN ×2 (15:49→16:05)
[2021-09-08 16:32] VITALS: O2SAT 90
== END 2021-09-08 20:19 | disposition expired | DRG 177 ==
LOC: SUATTDRO → EMEROOARM 12:48 → 3NENU 12:48 → SUATTDRO 17:22 → 3NENU 18:50
PROVIDERS: ADMIT Internal Medicine; ATTEND Family Medicine